=== PATIENT | male | born 1985 | race Caucasian/White ===

== ENCOUNTER 2021-07-12 18:44 | Emergency (ER) | payer OTHER ==
[~2021-07-12] VITALS: Ht 175.3 cm; Wt 63.0 kg
[2021-07-12 18:56] VITALS: BP 148/94
--- NOTE | 2021-07-12 19:03 | NUR ---
COVID ANTIGEN AND PCR SWAB DONE AND SENT TO LAB
== END 2021-07-12 20:13 | disposition home or self-care (01) ==
LOC: ER 18:47
DX: U07.1 COVID-19 (principal)
CPT/HCPCS: 71045; 87426; 99284; C9803; U0003